=== PATIENT | female | born 1995 | race Caucasian/White ===

== ENCOUNTER 2019-06-23 10:29 | Emergency (ER) | payer BC ==
[~2019-06-23] VITALS: Ht 177.8 cm; Wt 107.0 kg
--- NOTE | 2019-06-23 10:43 | PHYS DOC ---
Past History Past Medical History: No Pertinent History Past Surgical History: No Surgical History Smoking: Non-smoker Adult General Chief Complaint Chief Complaint: ABDOMINAL PAIN HPI HPI 24-year-old female, otherwise healthy, who presents for evaluation of a one-day history of epigastric and right upper quadrant abdominal pain. No association with oral intake. Does report multiple episodes of nonbloody/nonbilious emesis. No diarrhea. Last bowel movement this morning. Denies possibility of . No recent out of country travel or antibiotic use. No aggravating/alleviating factors. Review of Systems Review of Systems General: No fevers, chills. Eyes: No blurred vision, diplopia. ENT: No nasal congestion, sore throat. CV: No chest pain, edema. Resp: No shortness of breath, cough. GI: Reports abdominal pain, nausea, vomiting. : No dysuria, hematuria. Neuro: No headache, dizziness, weakness. MSK: No myalgia, arthralgia, back pain. Skin: No acute rash, lesion. All other systems were reviewed and found to be within normal limits, except as documented in this note. Physical Exam Physical Exam Gen: NAD. Head: NC/AT Eyes: No scleral icterus. No conjunctival injection. ENT: MMM. Posterior OP clear. Neck: Supple. NT. CV: RRR. Peripheral pulses intact. Resp: CTAB. Abd: Soft. Nondistended. Mild epigastric and right upper quadrant tenderness without rebound, guarding, rigidity. No flank percussion tenderness. No overlying skin changes. MSK: No peripheral cyanosis. No edema. Neuro: Awake and alert. Skin: Warm. Dry. Psych: Appropriate mood & affect. EKG EKG [] Radiology/Procedures Radiology/Procedures Abd Limited US: Findings: A right upper quadrant ultrasound exam was performed. Hepatic echotexture is normal. No biliary dilatation. Liver length of 16.8 cm is present. Portal venous flow is normal. Gallbladder wall thickness is normal. No cholelithiasis or findings of cholecystitis. Right kidney is normal in appearance with longitudinal measurement of 11.3 cm. No right upper quadrant ascites. Proximal pancreas is normal. Distal pancreas is obscured by bowel gas. Inferior vena cava is unremarkable. Impression: No suspicious process. Course & Med Decision Making Course & Med Decision Making Pertinent Labs and Imaging studies reviewed. (See chart for details) In summary, 24-year-old female with no significant past medical history of prior abdominal surgeries, who presents for the evaluation of a 1 day history of epigastric and right upper quadrant pain associated with nausea and vomiting. She does report a prior similar episode, seen at an outside facility, with un remarkable ultrasound at that time. She was recommended to seek outpatient evaluation for possibility of HIDA scan, but has not yet undergone the study. She has a benign abdominal exam, with focal tenderness of the epigastrium and right upper quadrant without peritoneal signs. No flank percussion tenderness. Basic abdominal lab work and right upper quadrant ultrasound were obtained. Her right upper quadrant ultrasound was negative for acute pathology, no suspicious findings for acute cholecystitis or cholelithiasis. Lab work was unrevealing. She received fluids, fentanyl, Zofran, Pepcid with efficacy. Suspect gastric etiology or biliary colic. Will DC home with Rx zofran, pepcid, PMD & GI follow up. Return precautions given. Dragon Disclaimer Dragon Disclaimer This electronic medical record was generated, in whole or in part, using a voice recognition dictation system. Departure Departure: Impression: Primary Impression: Epigastric pain Additional Impression: Nausea and vomiting Disposition: HOME, SELF-CARE Condition: STABLE Referrals: PCPHUMZA (PCP) [facility] Patient Instructions: Abdominal Pain (Nonspecific), Biliary Colic Additional Instructions: Please follow up with your primary doctor and gastroenterology. I suspect your abdominal pain is gastric (stomach) or biliary (gallbladder) in origin. You may benefit from additional outpatient imaging such as a HIDA scan or CT. Return to the ED if you develop new or worsening symptoms. Scripts Famotidine (PEPCID) 20 Mg Tablet 1 TAB PO BID for gastritis/GERD, #30 TAB 0 Refills Prov: LE,CLARITA H DO 06/23/19 Ondansetron Hcl (ZOFRAN) 4 Mg Tablet 1 TAB PO PRN Q6HRS PRN for NAUSEA, #12 TAB Prov: LE,CLARITA H DO 06/23/19 Problem Qualifiers LE,CLARITA H DO Jun 23, 2019 10:43
[2019-06-23] MEDS ORDERED: IV NORMAL SALINE 1,000ML 1,000 ML IV ONE (11:00)
[2019-06-23] MEDS ORDERED: ONDANSETRON PF 4 MG/2 ML VIAL. IVP ONE (11:00)
[2019-06-23] MEDS ORDERED: FAMOTIDINE 20 MG/2 ML VIAL IVP ONE ×2 (11:30→12:00)
--- NOTE | 2019-06-23 11:39 | RAD ---
Examination: ABDOMEN LTD History: Right upper quadrant epigastric pain Comparison/Correlation: None Findings: A right upper quadrant ultrasound exam was performed. Hepatic echotexture is normal. No biliary dilatation. Liver length of 16.8 cm is present. Portal venous flow is normal. Gallbladder wall thickness is normal. No cholelithiasis or findings of cholecystitis. Right kidney is normal in appearance with longitudinal measurement of 11.3 cm. No right upper quadrant ascites. Proximal pancreas is normal. Distal pancreas is obscured by bowel gas. Inferior vena cava is unremarkable. Impression: No suspicious process. Electronically signed by: Peña Bueno MD (06/23/2019 11:36 AM) [id number]
[2019-06-23 11:44] LABS: BASO % 0 % (0-3); EOS # 0.1 x10^3/uL (0.0-0.7); EOS % 1 % (0-3); HEMATOCRIT 41.3 % (36.0-47.0); LYMPH # 0.9 x10^3/uL (1.0-4.8); LYMPH % 10 % (24-48); MEAN CORPUSCULAR HEMOGLOBIN 29 pg (25-35); MEAN CORPUSCULAR HGB CONC 34 g/dL (31-37); MEAN CORPUSCULAR VOLUME 87 fL (79-100); MONO # 0.4 x10^3/uL (0.0-1.1); MONO % 4 % (0-9); NEUT # 8.2 x10^3uL (1.8-7.7); NEUT % 86 % (31-73); PLATELET COUNT 174 x10^3/uL (140-400); RED BLOOD COUNT 4.75 x10^6/uL (3.50-5.40); WHITE BLOOD COUNT 9.5 x10^3/uL (4.0-11.0)
[2019-06-23 11:51] LABS: CALCIUM 9.2 mg/dL (8.5-10.1); CREATININE 0.8 mg/dL (0.6-1.0); GFR 89.7
[2019-06-23 11:57] LABS: ALBUMIN/GLOBULIN RATIO 1.2 (1.0-1.7); MAGNESIUM 1.8 mg/dL (1.8-2.4); TOTAL BILIRUBIN 0.3 mg/dL (0.2-1.0); TOTAL PROTEIN 7.3 g/dL (6.4-8.2)
[2019-06-23] MEDS ORDERED: ONDA4TAB7 PO (12:06)
[2019-06-23] MEDS ORDERED: FAMO-63 PO (12:06)
[2019-06-23 12:17] VITALS: BP 116/58
== END 2019-06-23 12:17 | disposition home or self-care (01) ==
LOC: ER 10:29
DX: R10.13 Epigastric pain (principal); R11.2 Nausea with vomiting, unspecified
CPT/HCPCS: 36415; 76705; 80053; 81025; 83690; 83735; 85025; 96361; 96374; 96375; 99284; J2405; J3010; J3490; J7030

== ENCOUNTER 2020-03-17 19:57 | Emergency (ER) | payer BC ==
[~2020-03-17] VITALS: Ht 177.8 cm; Wt 114.8 kg
[~2020-03-17 19:57] MED LIST: FAMO-63 PO; ONDA4TAB7 PO
[2020-03-17] MEDS ORDERED: FAMOTIDINE 20 MG/2 ML VIAL ONE (21:10)
[2020-03-17] MEDS ORDERED: ONDANSETRON PF 4 MG/2 ML VIAL. ONE (21:10)
[2020-03-17 21:51] LABS: BASO % 0 % (0-3); EOS # 0.2 x10^3/uL (0.0-0.7); EOS % 3 % (0-3); HEMATOCRIT 41.9 % (36.0-47.0); HEMOGLOBIN 13.9 g/dL (12.0-15.5); LYMPH # 1.9 x10^3/uL (1.0-4.8); LYMPH % 22 % (24-48); MEAN CORPUSCULAR HEMOGLOBIN 29 pg (25-35); MEAN CORPUSCULAR HGB CONC 33 g/dL (31-37); MEAN CORPUSCULAR VOLUME 86 fL (79-100); MONO # 0.5 x10^3/uL (0.0-1.1); MONO % 6 % (0-9); NEUT # 5.9 x10^3uL (1.8-7.7); NEUT % 70 % (31-73); PLATELET COUNT 205 x10^3/uL (140-400); RED BLOOD COUNT 4.85 x10^6/uL (3.50-5.40); RED CELL DISTRIBUTION WIDTH 13.1 % (11.5-14.5); WHITE BLOOD COUNT 8.5 x10^3/uL (4.0-11.0)
[2020-03-17 21:57] LABS: BARBITURATES NEG (NEG); BENZODIAZEPINES NEG (NEG); CANNABINOIDS NEG (NEG); COCAINE NEG (NEG); METHADONE NEG (NEG); OPIATES NEG (NEG); PHENCYCLIDINE NEG (NEG)
[2020-03-17 21:57] LABS: CALCIUM 9.5 mg/dL (8.5-10.1); CREATININE 0.9 mg/dL (0.6-1.0); DIRECT BILIRUBIN 0.1 mg/dL (0.0-0.2); GFR 78.3; POTASSIUM 3.9 mmol/L (3.5-5.1); TOTAL BILIRUBIN 0.2 mg/dL (0.2-1.0)
[2020-03-17 21:58] LABS: AMPHETAMINE/METHAMPHETAMINE NEG (NEG)
[2020-03-17] MEDS ORDERED: IV RINGERS SOLUTION,LACTATED 1,000 ML IV SCH (22:00)
[2020-03-17] MEDS ORDERED: FAMOTIDINE 20 MG/2 ML VIAL IVP ONE (22:00)
[2020-03-17] MEDS ORDERED: ONDANSETRON PF 4 MG/2 ML VIAL. IVP ONE ×2 (22:00→22:45)
[2020-03-17 22:02] LABS: BACTERIA,URINE 0 /HPF (0-FEW); BILIRUBIN,URINE NEG (NEG); CLARITY,URINE CLEAR; COLOR,URINE YELLOW; GLUCOSE,URINE NEG (NEG); NITRITE,URINE NEG (NEG); RBC,URINE 0 /HPF (0-2); SQUAMOUS EPITHELIAL CELL,UR OCC /LPF; UROBILINOGEN,URINE 0.2 mg/dL (0.2 mg/dL); WBC,URINE 0 /HPF (0-4)
[2020-03-17] MEDS ORDERED: MORPHINE SULFATE 10 MG/ML SYRINGE. SQ ONE (22:45)
[2020-03-17] MEDS ORDERED: KETOROLAC 30 MG/ML VIAL. IVP ONE (22:45)
--- NOTE | 2020-03-17 22:45 | PHYS DOC ---
Past History Past Medical History: No Pertinent History, Gallstones, Ovarian Cyst, UTI, Other Past Surgical History: Cholecystectomy Smoking: Non-smoker Alcohol Use: None General Adult EDM: Chief Complaint: ABDOMINAL PAIN HPI: HPI: ".. I am having severe Lt. flank and lower abd. pain.. very nauseated.. ".." I hurt almost as bad as when I had gall bladder problems.. " Patient is a 24 year old female who presents with acute on set of Lt. flank and lower abd. pain. Patient states she had acute onset of pain tonight. Did have episode of nausea and vomiting because of the pain. Does seem to localize to the lower pelvic area on rebound. Patient did have some bilateral lower quadrant psoas sign. Patient states she had been feeling a "little bit off" yesterday. No history of bad food intake. No history of trauma. No history of immunosuppression. No history of specific ill contacts. Patient does have a history of previous urinary tract infections and ovarian cyst. Did have removal of her gallbladder earlier this year after several periods of biliary colic. No history of colitis with her or family members. Patient denies any episodes of diarrhea. Patient is in college and working on a [employer]. No recent travel. Did not get flu vaccination this year. No history of kidney stones with her or family members. No history of STDs. One lifetime sexual partner Review of Systems: Review of Systems: Constitutional: Denies fever or chills Eyes: Denies change in visual acuity HENT: Denies nasal congestion or sore throat Respiratory: Denies cough or shortness of breath Cardiovascular: Denies chest pain or edema GI: Complains of cute onset of abdominal pain, nausea, vomiting,. Denies bloody stools or diarrhea : Denies dysuria Musculoskeletal: Denies back pain or joint pain Integument: Denies rash Neurologic: Denies headache, focal weakness or sensory changes Endocrine: Denies polyuria or polydipsia Lymphatic: Denies swollen glands Psychiatric: Denies depression or anxiety Family History: Family History: Noncontributory to presentation Current Medications: Current Meds: Current Medications Medications (Trade) Dose Ordered Sig/Gillian Start Time Stop Time Status Last Admin Dose Admin Famotidine (Pepcid Vial) 20 mg 1X ONCE 03/17/20 22:00 03/17/20 22:01 DC Ketorolac Tromethamine (Toradol 30mg Vial) 30 mg 1X ONCE 03/17/20 22:45 03/17/20 22:46 UNV Lactated Ringer's 1,000 ml @ 1,000 mls/hr Q1H 03/17/20 22:00 03/17/20 22:59 Morphine Sulfate (Morphine 10mg Syringe) 10 mg 1X ONCE 03/17/20 22:45 03/17/20 22:46 UNV Ondansetron HCl (Zofran) 8 mg 1X ONCE 03/17/20 22:45 03/17/20 22:46 UNV Allergies: Allergies: Allergies Coded Allergies Type Severity Reaction Last Updated Verified No Known Drug Allergies 06/23/19 No Physical Exam: PE: Constitutional: In moderate acute distress, non-toxic appearance. [] HENT: Normocephalic, atraumatic, bilateral external ears normal, oropharynx moist, no oral exudates, nose normal. [] Eyes: PERRLA, EOMI, conjunctiva normal, no discharge. [] Neck: Normal range of motion, no tenderness, supple, no stridor. [] Cardiovascular:Heart rate regular rhythm, no murmur [] Lungs & Thorax: Bilateral breath sounds equal at apex on auscultation [] Abdomen: Bowel sounds decreased, soft, left flank and lower abdomen tenderness, no masses, no pulsatile masses. Old surgery scars. No vaginal discharge. Does have rebound to lower abdomen. Obese Skin: Warm, dry, no erythema, no rash. [] Back: No tenderness, does have left flank CVA tenderness. [] Extremities: No tenderness, no cyanosis, no clubbing, ROM intact, no edema. Mild bilateral psoas sign on heeltap Neurologic: Alert and oriented X 3, normal motor function, normal sensory function, no focal deficits noted. [] Psychologic: Affect anxious, judgement normal, mood normal. [] Current Patient Data: Labs: Laboratory Tests Test 03/17/20 21:00 03/17/20 21:30 03/17/20 21:34 Urine Collection Type Unknown Urine Color Yellow Urine Clarity Clear Urine pH 7.0 Urine Specific [place] >=1.030 Urine Protein Neg (NEG-TRACE) Urine Glucose (UA) Neg mg/dL (NEG) Urine Ketones (Stick) Neg mg/dL (NEG) Urine Blood Neg (NEG) Urine Nitrite Neg (NEG) Urine Bilirubin Neg (NEG) Urine Urobilinogen Dipstick 0.2 mg/dL (0.2 mg/dL) Urine Leukocyte Esterase Neg (NEG) Urine RBC 0 /HPF (0-2) Urine WBC 0 /HPF (0-4) Urine Squamous Epithelial Cells Occ /LPF Urine Bacteria 0 /HPF (0-FEW) Urine Opiates Screen Neg (NEG) Urine Methadone Screen Neg (NEG) Urine Barbiturates Neg (NEG) Urine Phencyclidine Screen Neg (NEG) Urine Amphetamine/Methamphetamine Neg (NEG) Urine Benzodiazepines Screen Neg (NEG) Urine Cocaine Screen Neg (NEG) Urine Cannabinoids Screen Neg (NEG) Urine Ethyl Alcohol Neg (NEG) White Blood Count 8.5 x10^3/uL (4.0-11.0) Red Blood Count 4.85 x10^6/uL (3.50-5.40) Hemoglobin 13.9 g/dL (12.0-15.5) Hematocrit 41.9 % (36.0-47.0) Mean Corpuscular Volume 86 fL (79-100) Mean Corpuscular Hemoglobin 29 pg (25-35) Mean Corpuscular Hemoglobin Concent 33 g/dL (31-37) Red Cell Distribution Width 13.1 % (11.5-14.5) Platelet Count 205 x10^3/uL (140-400) Neutrophils (%) (Auto) 70 % (31-73) Lymphocytes (%) (Auto) 22 % (24-48) L Monocytes (%) (Auto) 6 % (0-9) Eosinophils (%) (Auto) 3 % (0-3) Basophils (%) (Auto) 0 % (0-3) Neutrophils # (Auto) 5.9 x10^3uL (1.8-7.7) Lymphocytes # (Auto) 1.9 x10^3/uL (1.0-4.8) Monocytes # (Auto) 0.5 x10^3/uL (0.0-1.1) Eosinophils # (Auto) 0.2 x10^3/uL (0.0-0.7) Basophils # (Auto) 0.0 x10^3/uL (0.0-0.2) Sodium Level 136 mmol/L (136-145) Potassium Level 3.9 mmol/L (3.5-5.1) Chloride Level 102 mmol/L (98-107) Carbon Dioxide Level 27 mmol/L (21-32) Anion Gap 7 (6-14) Blood Urea Nitrogen 14 mg/dL (7-20) Creatinine 0.9 mg/dL (0.6-1.0) Estimated GFR (Cockcroft-Gault) 78.3 Glucose Level 90 mg/dL (70-99) Calcium Level 9.5 mg/dL (8.5-10.1) Total Bilirubin 0.2 mg/dL (0.2-1.0) Direct Bilirubin 0.1 mg/dL (0.0-0.2) Aspartate Amino Transferase (AST) 17 U/L (15-37) Alanine Aminotransferase (ALT) 39 U/L (14-59) Alkaline Phosphatase 57 U/L (46-116) Creatine Kinase 41 U/L (26-192) Troponin I Quantitative < 0.017 ng/mL (0-0.055) Total Protein 8.0 g/dL (6.4-8.2) Albumin 4.0 g/dL (3.4-5.0) Amylase Level 72 U/L (25-115) Lipase 106 U/L (73-393) POC Urine HCG, Qualitative hcg negative (Negative) EKG: EKG: Patient transferred to [facility] before completion of EKG [] Radiology/Procedures: Radiology/Procedures: [][address] [address] IMAGING REPORT Signed PATIENT: KHUSHBOO MCGOWAN ACCOUNT: [id number] : 1995 LOCATION: ER AGE: 24 SEX: F EXAM STATUS: REG ER ORD. PHYSICIAN: KARAN SHAH MD REASON: n/v, pain PROCEDURE: ACUTE ABDOMEN SERIES INDICATION: Reason: n/v, pain / Spl. Instructions: / History: COMPARISON: None IMPRESSION: 5 views of the chest and abdomen obtained. Cardiac silhouette is unremarkable. No definite focal airspace consolidation. Scoliotic curvature the spine. Surgical clips right upper quadrant could be from postcholecystectomy changes. There is a couple calcifications in the pelvis which are commonly secondary to phleboliths. Moderate stool in the right side of the colon. Air within large and small bowel in a nonspecific but not grossly obstructive pattern. Electronically signed by: Chuy Aparicio MD (03/17/2020 11:49 PM) DESKTOP- [id number] DICTATED AND SIGNED BY: CHUY APARICIO MD DATE: 03/17/20 2348 CC: KARAN SHAH MD; PCP,NO ~MTH0 0 IMAGING REPORT Signed PATIENT: KHUSHBOO MCGOWAN ACCOUNT: [id number] : 1995 LOCATION: ER AGE: 24 SEX: F EXAM STATUS: REG ER ORD. PHYSICIAN: KARAN SHAH MD REASON: severe Lt lower and Lt flank pain. PROCEDURE: CT ABDOMEN PELVIS WO CONTRAST Study: CT abdomen/pelvis without intravenous contrast Indication: Severe left lower abdominal and left flank pain. Comparison: None. Technique: Helical CT imaging performed of the abdomen and pelvis without the use of intravenous contrast. Sagittal and coronal reformats were obtained. One or more of the following individualized dose reduction techniques were utilized for this examination: 1. Automated exposure control 2. Adjustment of the mA and/or kV according to patient size 3. Use of iterative reconstruction technique. Findings: Inherently limited evaluation without intravenous contrast. Findings most compatible with acute appendicitis with the appendix dilated, thick-walled and with faint periappendiceal inflammation. On image 112 series 2 the appendix measures 1.3 cm transverse. Right ovarian cystic focus measures up to 3.1 cm. Small volume free pelvic fluid could be in part physiologic and reactive to appendicitis. The uterus and left ovary are unremarkable. Mild colonic wall thickening from the descending colon to the rectum favored on account of underdistention. Unremarkable small bowel and stomach. No focal hepatic parenchymal abnormality. Surgically absent gallbladder. Unremarkable biliary tree, pancreas and adrenal glands. Probable areas of renal cortical scarring at the upper pole on the left. Punctate intrarenal stones at the upper pole the left kidney. Mildly hyperattenuating renal pyramids on both sides as can be seen with medullary nephrocalcinosis. No collecting system dilatation. Unremarkable bladder. Nonaneurysmal aorta. No lymphadenopathy. No pneumoperitoneum. No acute or aggressive osseous process. Thoracolumbar levocurvature with the apex at L1-L2. Moderate disc space narrowing at L5-S1. Mild disc space narrowing lateralized to the left at L4-L5. No evidence for severe central canal or neural foraminal stenosis. The visualized thoracic contents are unremarkable. Impression: 1. Dilated and inflamed appendix in keeping with acute appendicitis (image 112 series 2). Mild surrounding inflammatory changes and a small amount of free pelvic fluid but there is no perforation or abscess. 2. Within normal limits appearance of the reproductive organs given patient age to include a 3.1 cm right ovarian cystic focus. 3. Punctate intrarenal stones at the upper pole on the left and left upper pole renal scarring. Faintly hyperattenuating renal pyramids bilaterally as can be seen with medullary nephrocalcinosis. No collecting system obstruction. Electronically signed by: KARL HOOKER MD (03/17/2020 11:52 PM) [facility] DICTATED AND SIGNED BY: KARL HOOKER MD DATE: 03/17/20 9970 CC: KARAN SHAH MD; PCP,NO ~MTH0 0 Heart Score: Risk Factors: Risk Factors: DM, Current or recent (<one month) smoker, HTN, HLP, family history of CAD, obesity. Risk Scores: Score 0 - 3: 2.5% MACE over next 6 weeks - Discharge Home Score 4 - 6: 20.3% MACE over next 6 weeks - Admit for Clinical Observation Score 7 - 10: 72.7% MACE over next 6 weeks - Early Invasive Strategies Course & Med Decision Making: Course & Med Decision Making Pertinent Labs and Imaging studies reviewed. (See chart for details) Discussed presentation, testing and treatment plan with Dr. Julio and Dr. Camarena. Patient to be transferred to [facility] and admitted to Dr. Julio. Dr. Camarena will do surgical consult. Pt. to remain NPO. Did receive 1 g of Rocephin and 500 mg of Flagyl prior to transfer to [place]. 1. Abdomen pain 2. CT findings consistent with acute appendicitis 3. Ovarian cyst 3.1 cm on right 4. Intrarenal stones with medullary nephrocalcinosis 5. CT findings of colonic wall thickening-possible underdistention versus inflammatory bowel [] Dragon Disclaimer: Dragon Disclaimer: This electronic medical record was generated, in whole or in part, using a voice recognition dictation system. Departure Departure: Referrals: PCP,HUMZA (PCP) KARAN SHAH MD Mar 17, 2020 22:45
--- NOTE | 2020-03-17 23:52 | RAD ---
INDICATION: Reason: n/v, pain / Spl. Instructions: / History: COMPARISON: None IMPRESSION: 5 views of the chest and abdomen obtained. Cardiac silhouette is unremarkable. No definite focal airs pace consolidation. Scoliotic curvature the spine. Surgical clips right upper quadrant could be from postcholecystectomy changes. There is a couple calcifications in the pelvis which are commonly second crispin to phleboliths. Moderate stool in the right side of the colon. Air within large and small bowel i n a nonspecific but not grossly obstructive pattern. Electronically signed by: Oscar Chakraborty MD (03/17/2020 11:49 PM) [id number]
--- NOTE | 2020-03-17 23:55 | RAD ---
Study: CT abdomen/pelvis without intravenous contrast Indication: Severe left lower abdominal and left flank pain. Comparison: None. Technique: Helical CT imaging performed of the abdomen and pelvis without the use of intravenous cont rast. Sagittal and coronal reformats were obtained. One or more of the following individualized dose reduction techniques were utilized for this examinat ion: 1. Automated exposure control 2. Adjustment of the mA and/or kV according to patient size 3. Use of iterative reconstruction technique. Findings: Inherently limited evaluation without intravenous contrast. Findings most compatible with acute appendicitis with the appendix dilated, thick-walled and with manfred nt periappendiceal inflammation. On image 112 series 2 the appendix measures 1.3 cm transverse. Right ovarian cystic focus measures up to 3.1 cm. Small volume free pelvic fluid could be in part phy siologic and reactive to appendicitis. The uterus and left ovary are unremarkable. Mild colonic wall thickening from the descending colon to the rectum favored on account of underdiste ntion. Unremarkable small bowel and stomach. No focal hepatic parenchymal abnormality. Surgically abs ent gallbladder. Unremarkable biliary tree, pancreas and adrenal glands. Probable areas of renal sheela ical scarring at the upper pole on the left. Punctate intrarenal stones at the upper pole the left ki dney. Mildly hyperattenuating renal pyramids on both sides as can be seen with medullary nephrocalcin osis. No collecting system dilatation. Unremarkable bladder. Nonaneurysmal aorta. No lymphadenopathy. No pneumoperitoneum. No acute or aggressive osseous process. Thoracolumbar levocurvature with the apex at L1-L2. Moderate disc space narrowing at L5-S1. Mild dis c space narrowing lateralized to the left at L4-L5. No evidence for severe central canal or neural fo raminal stenosis. The visualized thoracic contents are unremarkable. Impression: 1. Dilated and inflamed appendix in keeping with acute appendicitis (image 112 series 2). Mild surro unding inflammatory changes and a small amount of free pelvic fluid but there is no perforation or ab scess. 2. Within normal limits appearance of the reproductive organs given patient age to include a 3.1 cm right ovarian cystic focus. 3. Punctate intrarenal stones at the upper pole on the left and left upper pole renal scarring. Jez tly hyperattenuating renal pyramids bilaterally as can be seen with medullary nephrocalcinosis. No co llecting system obstruction. Electronically signed by: KARL HOOKER MD (03/17/2020 11:52 PM) [facility]
[2020-03-18] MEDS ORDERED: IV NORMAL SALINE 50ML 50 ML ONE (00:45)
[2020-03-18] MEDS ORDERED: cefTRIAXone SODIUM 1 GM VIAL ONE (00:45)
[2020-03-18 01:37] VITALS: BP 128/73
== END 2020-03-18 01:31 | disposition short-term general hospital (02) ==
LOC: ER 19:57
DX: K35.80 Unspecified acute appendicitis (principal); N83.201 Unspecified ovarian cyst, right side; E83.59 Other disorders of calcium metabolism; N29 Other disorders of kidney and ureter in diseases classified elsewhere; R93.5 Abnormal findings on diagnostic imaging of other abdominal regions, including retroperitoneum; Z87.440 Personal history of urinary (tract) infections; Z90.49 Acquired absence of other specified parts of digestive tract
CPT/HCPCS: 36415; 74022; 74176; 80048; 80076; 80307; 81001; 81025; 82150; 82550; 83690; 84484; 85025; 93005; 96361; 96365; 96367; 96372; 96375; 99285; J0696; J1885; J2270; J2405; J3490; J7120